=== PATIENT | female | born 1985 | race Caucasian/White ===

== ENCOUNTER 2017-08-06 16:16 | Outpatient (CLI) | payer OTHER ==
--- NOTE | 2017-08-07 14:09 | MRI Report ---
EXAM: RIGHT WRIST MRI WITHOUT CONTRAST EXAM DATE: 08/06/2017 05:30 PM. CLINICAL HISTORY: Right wrist pain for three months. ? fracture. No history of trauma. COMPARISON: None. TECHNIQUE: Multiplanar, multisequence T1-weighted and fluid-sensitive sequences of the wrist without contrast. Other: None. FINDINGS: Bones: No fractures or subluxations. No marrow edema. No bone lesions. Cartilage: The articular cartilage is unremarkable. The triangular fibrocartilage complex is unremark able. Ligaments: The scapholunate and lunotriquetral ligaments are intact. The visualized other intrinsic, extrinsic and collateral ligaments are unremarkable. Tendons: The extensor compartment I through and flexor tendons are unremarkable. Musculature: No edema or fatty atrophy. Other: The contents of the carpal tunnel, including the median nerve, are unremarkable. Guyons canal is unremarkable. No ganglion cysts. No joint effusions. The subcutaneous tissues are unremarkable. IMPRESSION: No MRI abnormalities in the wrist. [facility] Referring Provider Line: [phone] SITE ID: [id number]
== END 2017-08-06 16:17 | disposition home or self-care (01) ==
LOC: DI 16:16
PROVIDERS: ATTEND Orthopaedic Surgery
DX: M25.531 Pain in right wrist (principal)

== ENCOUNTER 2017-09-12 14:16 | Emergency (ER) | payer OTHER ==
--- NOTE | 2017-09-12 14:55 | ED Physician Documentation ---
PD HPI TRUNK INJURY - Stated complaint Stated Complaint: L SIDE RIB PX-FELL OFF STAIRS - Chief complaint Chief Complaint: General - History obtained from History obtained from: Patient - History of Present Illness Location: Left chest Type of injury: Fall (she slid on stairs and tried to catch her fall holding onto railing with left hand. [place] pain in left posterolateral ribs/chest after. Feels she pulled muscle but may have impacted there as she fell as well. Is and did not know what she could take fo rthe pain of it.) Timing - onset: How many days ago (2) Timing - duration: Days (2) Timing - details: Abrupt onset, Still present (worsening pain for the past couple days.) Quality: Pain, Spasm Worsened by: Moving (of shoulder girdle and with deep breathing, sneezing.), Palpating Associated symtptoms: No: Weakness, Numbness Where injury occured: Home Similar symptoms before: Has not had sx before Recently seen: Not recently seen Review of Systems Nose: denies: Rhinorrhea / runny nose, Congestion Throat: denies: Sore throat Respiratory: denies: Cough GI: reports: Nausea. 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 : None HEENT: None Psych: None Musculoskeletal: None Derm: Eczema Other Past Medical History: Patient foramen ovale - Past Surgical History Past Surgical History: Yes General: Cholecystectomy, EGD /INORGANIC CHEMIST: section - Present Medications Home Medications: Ambulatory Orders Medication Instructions Recorded Confirmed HYDROcod/ACETAM 5/325 [Carroll 5/325] 1 tab PO Q6H PRN #15 tablet 09/12/17 Naproxen 375 mg PO BID #20 tablet 09/12/17 #103/Iron Fumarate/FA 1 tab PO DAILY 09/12/17 09/12/17 [ Tablet] - Allergies Allergies/Adverse Reactions: Allergies Allergy/AdvReac Type Severity Reaction Status Date / Time Sulfa (Sulfonamide Allergy Intermediate Rash Verified 11/01/14 09:34 Antibiotics) latex Allergy Mild Rash Verified 11/01/14 09:34 Penicillins Allergy Mild Rash Verified 11/01/14 09:34 - Social History Does the pt smoke?: No Smoking Status: Never smoker Does the pt drink ETOH?: No Does the pt have substance abuse?: No - Immunizations Immunizations are current?: Yes - POLST Patient has POLST: No PD ED PE NORMAL - Vitals Vital signs reviewed: Yes - General General: Alert and oriented X 3, No acute distress, Well developed/nourished - HEENT HEENT: Atraumatic - Neck Neck: No bony TTP - Cardiac Cardiac: RRR, No murmur - Respiratory Respiratory: No respiratory distress, Clear bilaterally, Other (left posterolateral chest about ribs 8-10 and around latissimus insertion area, with some tenderness. No point tenderness of ribs. ) - Abdomen Abdomen: Normal bowel sounds, Soft, Non tender, Non distended Results - Vitals Vitals: Oxygen O2 Source Room air PD MEDICAL DECISION MAKING - ED course Complexity details: reviewed results (bedside US showed IUP at 8.3 weeks without free fluid in pelvis. ), considered differential (lungs sound good and we opted for not xrays. Can treat as possible rib fracture vs contusion vs. strain. It seemed more of a pull with shoulder rather than forceful direct impact, so most likely strain major component. ), d/w patient Departure - Departure Disposition: 01 Home, Self Care Clinical Impression: Qualifiers: Weeks of gestation: 8 weeks Qualified Code(s): Z3A.08 - 8 weeks gestation of Muscle strain of chest wall Qualifiers: Encounter type: initial encounter Qualified Code(s): S29.011A - Strain of muscle and tendon of front wall of thorax, initial encounter Condition: Stable Record reviewed to determine appropriate education?: Yes Instructions: ED Strain Chest Wall Ch Follow-Up: [facility] [Provider Group] Prescriptions: HYDROcod/ACETAM 5/325 [Carroll 5/325] 1 tab PO Q6H PRN #15 tablet PRN Reason: Pain Naproxen 375 mg PO BID #20 tablet Comments: At this point in anti-inflammatories and pain medicine are okay. Use naproxen twice daily for the next 7-10 days and add Tylenol or hydrocodone if needed for pains. Recheck if not better over the next several days to week. It is probably muscle strain of the intercostal and shoulder muscles. Unlikely to have a rib fracture though this would be treated in the same way but take a little bit longer to heal like a couple of weeks. Follow-up with your primary in the next week or so. Discharge Date/Time: 09/12/17 15:43
[2017-09-12] MEDS ORDERED: ACETAMINOPHEN 325 MG TABLET PO STA (15:29)
[2017-09-12] MEDS ORDERED: IBUPROFEN 400 MG TABLET PO STA (15:29)
[2017-09-12 15:43] VITALS: BP 126/70
== END 2017-09-12 15:43 | disposition home or self-care (01) ==
LOC: ED 14:16
DX: O9A.211 Injury, poisoning and certain other consequences of external causes complicating pregnancy, first trimester (principal); S29.011A Strain of muscle and tendon of front wall of thorax, initial encounter; W10.9XXA Fall (on) (from) unspecified stairs and steps, initial encounter; Z3A.08 8 weeks gestation of pregnancy
CPT/HCPCS: 99283; A9270

== ENCOUNTER 2017-12-02 13:24 | Emergency (ER) | payer OTHER ==
--- NOTE | 2017-12-02 13:49 | ED Physician Documentation ---
History of Present Illness - Stated complaint Stated Complaint: RECTAL BLEEDING/19WKS PREG - Chief complaint Chief Complaint: General - History obtained from History obtained from: Patient - History of Present Illness Timing: Yesterday (She is 19 weeks and has been having issues with hard stools and constipation. Last night had a small amount of painless bright red blood per rectum, today a little more, still with bowel movements, mostly on the outside. Also some small dime sized clots.) Review of Systems Constitutional: denies: Fever, Chills Respiratory: denies: Dyspnea, Cough GI: reports: Abdominal Pain (mild LLQ), Constipation, Bloody / black stool. 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 : None HEENT: None Psych: None Musculoskeletal: None Derm: Eczema - Past Surgical History Past Surgical History: Yes General: Cholecystectomy, EGD /ADVANCED QUALITY ENGINEER: section - Present Medications Home Medications: Ambulatory Orders Medication Instructions Recorded Confirmed #103/Iron Fumarate/FA 1 tab PO DAILY 09/12/17 09/12/17 [ Tablet] Aspirin [Adult Aspirin Regimen] 1 tab PO DAILY 12/02/17 12/02/17 Docusate Sodium 100 mg PO BID #30 capsule 12/02/17 Polyethylene Glycol 3350 [Miralax] 17 gm PO DAILY PRN #1 bottle 12/02/17 - Allergies Allergies/Adverse Reactions: Allergies Allergy/AdvReac Type Severity Reaction Status Date / Time Sulfa (Sulfonamide Allergy Intermediate Rash Verified 12/02/17 13:35 Antibiotics) latex Allergy Mild Rash Verified 12/02/17 13:35 Penicillins Allergy Mild Rash Verified 12/02/17 13:35 - Social History Does the pt smoke?: No Smoking Status: Never smoker Does the pt drink ETOH?: No Does the pt have substance abuse?: No - Immunizations Immunizations are current?: Yes - POLST Patient has POLST: No PD ED PE NORMAL - Vitals Vital signs reviewed: Yes - General General: Alert and oriented X 3, No acute distress - Abdomen Abdomen: Normal bowel sounds, Soft, Non tender - Rectal Rectal: Other (with Ellie Madrigal RN present, external exam nl, anoscopy with internal hemorrhoid at 6o'clock, no active bleeding) - Neuro Neuro: Alert and oriented X 3, Normal speech - Psych Psych: Normal mood, Normal affect Results - Vitals Vitals: Vital Signs - 24 hr 12/02/17 13:29 Temperature 36.3 C L Heart Rate 84 Respiratory 14 Rate Blood Pressure 133/83 H O2 Saturation 97 Oxygen O2 Source Room air PD MEDICAL DECISION MAKING - Sepsis Event Vital Signs: Vital Signs - 24 hr 12/02/17 13:29 Temperature 36.3 C L Heart Rate 84 Respiratory 14 Rate Blood Pressure 133/83 H O2 Saturation 97 Oxygen O2 Source Room air Departure - Departure Disposition: 01 Home, Self Care Clinical Impression: Internal hemorrhoid, bleeding Qualifiers: Weeks of gestation: 19 weeks Qualified Code(s): Z3A.19 - 19 weeks gestation of Condition: Good Record reviewed to determine appropriate education?: Yes Instructions: ED Hemat[place]zia Stable Prescriptions: Docusate Sodium 100 mg PO BID #30 capsule Polyethylene Glycol 3350 [Miralax] 17 gm PO DAILY PRN #1 bottle PRN Reason: Constipation Comments: [place]
[2017-12-02 14:19] VITALS: BP 116/75
== END 2017-12-02 14:19 | disposition home or self-care (01) ==
LOC: ED 13:24
DX: O22.42 Hemorrhoids in pregnancy, second trimester (principal); K64.8 Other hemorrhoids; Z3A.19 19 weeks gestation of pregnancy; Z87.11 Personal history of peptic ulcer disease
CPT/HCPCS: 99283